=== PATIENT | female | born 1975 | race Caucasian/White ===

== ENCOUNTER 2017-03-16 12:13 | Day surgery (SDC) | payer OTHER ==
[~2017-03-16 12:13] MED LIST: BUPIVACAINE HCL 0.25 % INJ/PF (2.5 MG/1 ML) 30 ML VIAL ONE; CEFAZOLIN 2 GM/D5W RTU 2 GM/50 ML RTUPB IV PRN
[2017-03-16] MEDS ORDERED: MIDAZOLAM 2 MG/2 ML INJ ONE (12:27)
[2017-03-16] MEDS ORDERED: PROPOFOL INJ 200 MG/20 ML VIAL IV ONE (12:28)
[2017-03-16] MEDS ORDERED: ACETAMINOPHEN 100 ML IV ONE (12:28)
[2017-03-16] MEDS ORDERED: HYDROMORPHONE HCL INJ/PF 2 MG/ML AMPULE ONE (12:28)
[2017-03-16] MEDS ORDERED: ONDANSETRON HCL INJ/PF 4 MG/2 ML SDV ONE (12:28)
[2017-03-16] MEDS ORDERED: EPHEDRINE SULFATE INJ 50 MG/1 ML AMPULE ONE (12:28)
--- NOTE | 2017-03-16 12:48 | EKG REPORT ---
SEVERITY:- BORDERLINE ECG - SINUS RHYTHM SHORT PA INTERVAL, ACCELERATED AV CONDUCTION : Confirmed by: Sam Grant MD 16-Mar-2017 12:47:38
[2017-03-16 12:59] LABS: APPEARANCE,URINE CLEAR; BILIRUBIN,URINE NEGATIVE (NEGATIVE); COLOR,URINE YELLOW; GLUCOSE, URINE NEGATIVE (NEGATIVE); KETONES,URINE NEGATIVE (NEGATIVE); LEUKOCYTE ESTERASE,URINE NEGATIVE (NEGATIVE); NITRITE,URINE NEGATIVE (NEGATIVE); PROTEIN,URINE NEGATIVE (NEGATIVE); URINE SPECIFIC GRAVITY 1.012; UROBILINOGEN,URINE NEGATIVE mg/dL (<2.0)
[2017-03-16 13:02] LABS: ABSOLUTE BASOPHILS # (AUTO) 0.1 10^3/uL (0.0-0.2); ABSOLUTE EOSINOPHILS # (AUTO) 0.3 10^3/uL (0.0-0.6); ABSOLUTE LYMPHOCYTES (AUTO) 2.7 10^3/uL (0.5-4.7); ABSOLUTE MONOCYTES (AUTO) 0.5 10^3/uL (0.1-1.4); EOSINOPHILS % (AUTO) 4.6 % (0-6); HEMOGLOBIN 14.4 g/dL (12.0-15.5); LYMPHOCYTES % (AUTO) 41.6 % (13-45); MEAN CORPUSCULAR HEMOGLOBIN 31.5 pg (27.0-33.4); MEAN CORPUSCULAR HGB CONC 34.3 g/dL (32.0-36.0); MEAN CORPUSCULAR VOLUME 92 fl (80-97); MONOCYTES % (AUTO) 7.1 % (3-13); PLATELET COUNT 269 10^3/uL (150-450); RED BLOOD COUNT 4.57 10^6/uL (3.72-5.28); RED CELL DISTRIBUTION WIDTH 13.3 % (11.5-14.0); SEGMENTED NEUTROPHILS % (AUTO) 45.7 % (42-78); TOTAL CELLS COUNTED % (AUTO) 100 %; WHITE BLOOD COUNT 6.6 10^3/uL (4.0-10.5)
--- NOTE | 2017-03-16 13:14 | RADIOLOGY REPORT (SQ) ---
EXAM DESCRIPTION: CHEST SINGLE VIEW COMPLETED DATE/TIME: 03/16/2017 12:42 pm REASON FOR STUDY: PREOP COMPARISON: None. EXAM PARAMETERS: NUMBER OF VIEWS: One view. TECHNIQUE: Single frontal radiographic view of the chest acquired. RADIATION DOSE: NA LIMITATIONS: None. FINDINGS: LUNGS AND PLEURA: Azygos lobe on the right. No opacities, masses or pneumothorax. No pleu ral effusion. MEDIASTINUM AND HILAR STRUCTURES: No masses. Contour normal. HEART AND VASCULAR STRUCTURES: Heart normal in size. Normal vasculature. BONES: No acute findings. HARDWARE: None in the chest. OTHER: No other significant finding. IMPRESSION: NO ACUTE RADIOGRAPHIC FINDING IN THE CHEST. TECHNICAL DOCUMENTATION: JOB ID: [id number] [employer]- All Rights Reserved
[2017-03-16 13:24] LABS: ANION GAP 7 (5-19); BLOOD UREA NITROGEN 14 mg/dL (7-20); CALCIUM 9.9 mg/dL (8.4-10.2); CARBON DIOXIDE 27 mmol/L (22-30); CHLORIDE 107 mmol/L (98-107); GLUCOSE 90 mg/dL (75-110); POTASSIUM 4.3 mmol/L (3.6-5.0); SODIUM 140.5 mmol/L (137-145)
[2017-03-16] MEDS ORDERED: BUPIVACAINE HCL 0.25% /EPINEPHRINE INJ/PF 30 ML SDV ONE (13:52)
[2017-03-16] MEDS ORDERED: MEPERIDINE HCL/PF INJ 25 MG/1 ML DISP.SYRIN IV PRN (13:54)
[2017-03-16] MEDS ORDERED: DIPHENHYDRAMINE HCL 50 MG/ML VIAL IV PRN (13:54)
[2017-03-16] MEDS ORDERED: PROMETHAZINE HCL INJ 25 MG/1 ML VIAL IV PRN (13:54)
[2017-03-16] MEDS ORDERED: FENTANYL CITRATE INJ/PF 100 MCG/2 ML AMPUL IV PRN ×3 (13:54)
--- NOTE | 2017-03-16 14:17 | Operative Report ---
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 A 5 cm longitudinal incision was made over the distal posterior femoral metaphysis under fluoroscopic guidance. The underlying femoral metaphysis is exposed. A window into the distal femoral metaphysis was created using a series of drills in a circular pattern and then an osteotome to connect the dots. Upon entering the femur a large amount of apparent cancellus bone is evacuated with a curette and delivered to the field. The distal femur is largely denuded of cancellus bone down to what appears to be the physeal scar. The wound is then irrigated. The cortical window is packed with polymethylmethacrylate bone cement. The wound is irrigated and closed with interrupted Vicryl followed by running subcuticular Monocryl. A sterile dressings applied and the patient's return to the PACU in satisfactory condition..
--- NOTE | 2017-03-16 14:52 | RADIOLOGY REPORT (SQ) ---
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 FLUOROSCOPY TIME: 0.1 minute 3 images saved to PACS. TECHNIQUE: Intra-operative images acquired during surgical procedure to evaluate progress. NUMBER OF IMAGES: 3 LIMITATIONS: None. FINDINGS: Surgical probe overlies distal femur. IMPRESSION: IMAGE(S) OBTAINED DURING PROCEDURE. COMMENT: Quality ID [id number]: Final reports for procedures using fluoroscopy that document radiation exp osure indices, or exposure time and number of fluorographic images (if radiation exposure indices are not available) Please consult full operative report of the attending physician for description of the procedure. TECHNICAL DOCUMENTATION: JOB ID: [id number] [employer]- All Rights Reserved
[2017-03-16] MEDS ORDERED: FENTANYL CITRATE INJ/PF 100 MCG/2 ML AMPUL ONE (14:58)
[2017-03-16] MEDS ORDERED: PROMETHAZINE HCL INJ 25 MG/1 ML VIAL ONE (15:02)
[2017-03-16] MEDS ORDERED: OXYCODONE HCL IR 5 MG TABLET PO PRN (15:13)
[2017-03-16] MEDS ORDERED: ONDANSETRON 4 MG TAB.RAPDIS PO PRN (15:14)
[2017-03-16 16:58] VITALS: BP 108/61
== END 2017-03-16 16:45 | disposition home or self-care (01) ==
LOC: OROUT 12:13
PROVIDERS: ATTEND Orthopaedic Surgery
PROC: 0QBC0ZX Excision of Left Lower Femur, Open Approach, Diagnostic (ICD-10-PCS; principal; 2017-03-16 14:30)
DX: D16.22 Benign neoplasm of long bones of left lower limb (principal); Z91.040 Latex allergy status; Z87.892 Personal history of anaphylaxis
CPT/HCPCS: 36415; 85025; 80048; 81001; 88305 ×2; 71045; 73552; 93005; 93010; 20245; J2250; J3490; J3010; J1170; J2550; J2405; J2704; J0690; J0131; 01250